=== PATIENT | female | born 1960 | race Caucasian/White ===

== ENCOUNTER 2019-06-07 11:25 | Emergency (ER) | payer OTHER, SELFPAY ==
--- NOTE | 2019-06-07 11:56 | PC.NURSE ---
1142 noted pt left during registration, informed pt access she had to leave and may be back later.
== END 2019-06-07 11:42 | disposition left against medical advice (07) ==
PROVIDERS: Emergency Provider Internal Medicine Hematology & Oncology
DX: Z53.21 Procedure and treatment not carried out due to patient leaving prior to being seen by health care provider (principal)
CPT/HCPCS: 99199

== ENCOUNTER 2019-06-07 13:09 | Emergency (ER) | payer OTHER, SELFPAY ==
[2019-06-07 13:18] VITALS: BP 127/68; PULSE 67; RESP 16; TEMP 37.1; O2SAT 97
--- NOTE | 2019-06-07 13:34 | ED.GENADULT ---
HPI - General Adult General Chief complaint: Ear Stated complaint: Poss ear infection Time Seen by Provider: 06/07/19 13:34 Source: patient and RN notes reviewed Mode of arrival: ambulatory Limitations: no limitations History of Present Illness HPI narrative: 58-year-old female presents with complaints of left ear pain for 2 weeks. No treatment. Symptoms increase over the last 24 hours. History of ear infection and Tympanoplasty. Flonase and Zyrtec intermittently but not in the last 2 weeks. Denies swimming or getting water into ear. Denies trouble hearing. Denies URI symptoms, No high fevers or chills. Denies injury to the ear. No nasal drainage and congestion. Denies nausea, vomiting, tinnitus, and dizziness. Some parts of this dictation were generated by voice recognition software and may contain typographical and/or grammatical inaccuracies. Related Data Allergies Allergy/AdvReac Type Severity Reaction Status Date / Time ear drop Allergy Swelling Uncoded 06/07/19 13:29 Review of Systems Review of Systems: Narrative: CONSTITUTIONAL: Denies fever, chills, sweats. EYES: Denies visual changes, redness, discharge. ENT: Denies rhinorrhea, congestion, sore throat. Complains of LT otalgia. Denies drainage and itching. CARDIOVASCULAR: Denies chest pain, palpitations, edema. RESPIRATORY: Denies dyspnea, wheezing, cough. GASTROINTESTINAL: Denies abdominal pain, nausea, vomiting, diarrhea. GENITOURINARY: Denies dysuria, hematuria, abnormal discharge. SKIN: Denies rash or itching. MUSCULOSKELETAL: Denies acute back pain, joint pain, or myalgia. NEUROLOGIC: Denies numbness or focal weakness. PSYCHIATRIC: Denies anxiety or depression. PMFSH Past Medical History Medical History (Updated 06/08/19 @ 00:00 by Skylar Joy) Early localized Lyme infection Surgical History Surgical History (Updated 06/07/19 @ 14:11 by AMY Bell) History of tympanoplasty Comments At time of signature, I have reviewed and agree with nursing past medical, surgical, social, and family history. Please see nursing chart for further information. There is no relevant family history pertinent to the presenting complaint. Exam Narrative: Exam Narrative: GENERAL: This is a well-nourished, well-developed patient, in no apparent distress. Talks in full sentences and ambulates with steady gait without dyspnea HEAD: normocephalic, atraumatic. EYES: PERRL. Sclera clear/white. Vision is grossly intact. EARS: Pinna is normal shape and contour. LT ear with mild-moderate tenderness with manipulation. No significant swelling of canal, no discharge. Clear external auditory canals. RT TM pearly sanford with good cone of light, no erythema or suppuration. No gross hearing deficit. NOSE: External nose normal with no obvious nasal discharge, nares with mild redness and enlarge turbinates, no clear. THROAT: Mucous membranes moist, posterior pharynx clear. NECK: Neck supple, non-tender without lymphadenopathy, masses or thyromegaly. CARDIOVASCULAR: Regular rate and rhythm without murmurs, gallops, or rubs. RESPIRATORY: Clear to auscultation. Breath sounds equal bilaterally. No wheezes, rales, or rhonchi. GASTROINTESTINAL: Abdomen soft, non-tender, nondistended. Bowel sounds are active. No hepato-splenomegaly, or palpable masses. No guarding. SKIN: warm, intact with no suspicious lesions or rash, good texture and turgor. NEURO: awake, alert, and oriented to person, place and time. There were no obvious focal neurologic abnormalities. EXTREMITIES: No clubbing, cyanosis, or edema. [place] Coma Scale Eye Opening: Spontaneous 4 [place] Coma Scale Motor: Obeys Commands 6 [place] Coma Scale Verbal: Oriented 5 Course Vital Signs Vital signs: Vital Signs Temperature 37.1 C 06/07/19 13:18 Pulse Rate 67 06/07/19 13:18 Respiratory Rate 16 06/07/19 13:18 Blood Pressure 127/68 06/07/19 13:18 Pulse Oximetry 97 06/07/19 13:18 Temperat
== END 2019-06-07 13:50 | disposition home or self-care (01) ==
PROVIDERS: Emergency Provider Nurse Practitioner Family
DX: H60.92 Unspecified otitis externa, left ear (principal); J00 Acute nasopharyngitis [common cold]; J01.90 Acute sinusitis, unspecified
CPT/HCPCS: 99213; G0463